=== PATIENT | female | born 1970 | race Caucasian/White ===

== ENCOUNTER 2016-11-02 14:02 | Emergency (ER) | payer OTHER ==
[~2016-11-02] VITALS: Wt 57.5 kg
[2016-11-02 18:02] LABS: URINE BLOOD (Dip) POC Negative (NEGATIVE)
[2016-11-02] MEDS ORDERED: KETOROLAC 30 MG INJ IV STA (18:22)
[2016-11-02] MEDS ORDERED: ASPIRIN 325 MG TAB PO ONE (18:30)
[2016-11-02 18:33] LABS: BASOPHILS % 0.4 % (0.0-2.0); EOSINOPHILS # 0.1 10^3/ul (0.0-0.5); HEMATOCRIT 39.2 % (37.0-47.0); HEMOGLOBIN 13.3 g/dl (12.0-16.0); LYMPHOCYTES # 2.6 10^3/ul (0.8-2.9); LYMPHOCYTES % 32.4 % (15.0-51.0); MEAN CORPUSCULAR HEMOGLOBIN 29.4 pg (29.0-33.0); MEAN CORPUSCULAR HGB CONC 33.9 g/dl (32.0-37.0); MEAN CORPUSCULAR VOLUME 86.7 fl (82.0-101.0); MEAN PLATELET VOLUME 9.3 fl (7.4-10.4); MONOCYTE # 0.7 10^3/ul (0.3-0.9); MONOCYTES % 8.5 % (0.0-11.0); NEUTROPHIL # 4.5 10^3/ul (1.6-7.5); NEUTROPHILS % 57.3 % (39.0-77.0); PLATELET COUNT 367 10^3/UL (140-415); RED BLOOD COUNT 4.52 10^6/ul (4.20-5.40); RED CELL DISTRIBUTION WIDTH 12.6 % (11.5-14.5); WHITE BLOOD COUNT 7.9 10^3/ul (4.8-10.8)
[2016-11-02 18:39] LABS: ANION GAP 19 (8-16); BLOOD UREA NITROGEN 12 mg/dl (7-20); CALCIUM 9.8 mg/dl (8.4-10.2); CARBON DIOXIDE 31 mmol/L (21-31); CHLORIDE 99 mmol/L (97-110); CREATININE 0.57 mg/dl (0.44-1.00); GLUCOSE 110 mg/dl (70-220); POTASSIUM 3.5 mmol/L (3.5-5.1); SODIUM 145 mmol/L (135-144)
[2016-11-02] MEDS ORDERED: SOD CHLORIDE 0.9% 100 ML ONE (18:50)
[2016-11-02] MEDS ORDERED: IOHEXOL 350MG/ML 50 ML BTL ONE (18:50)
[2016-11-02] MEDS ORDERED: IOHEXOL 100 ML ONE (18:50)
[2016-11-02 18:57] LABS: TROPONIN-I < 0.012 ng/ml (0.00-0.12)
--- NOTE | 2016-11-02 19:29 | RADRPT ---
PROCEDURE: CTA Chest with contrast and with 3-D reconstructions CLINICAL INDICATION: SOB left PE ? TECHNIQUE: The study was performed utilizing multidetector CT scanner. Direct spiral axial section s were obtained from the thoracic inlet to the upper abdomen with the use of intravenous contrast ma terial (110 cc of Omnipaque 350). Sagittal, coronal and 3-D reformations were obtained. The images w ere reviewed on a PACS workstation. DLP 297.91 mGycm CTDIvol 28.17, 7.60 mGy One or more of the following dose reduction techniques were used: - Automated exposure control. - Adjustment of the mA and/or kV according to patient size. - Use of iterative reconstruction technique. COMPARISON: No prior studies are available for comparison. FINDINGS: There are no pulmonary emboli. The lungs are clear. There is no pleural fluid. There is no pneumothorax. Heart size is within normal limits. There is no pericardial fluid. The aorta is within normal limi ts. There are no enlarged axillary or mediastinal lymph nodes. The visualized portions of the upper abdomen are unremarkable. Osseous and soft tissue structures are within normal limits. IMPRESSION: No CT evidence for pulmonary embolus. Clear lungs. RPTAT: EE Physician Huber Date Time Electronically viewed and signed by Physician Huber on 11/02/2016 19:29 /
[2016-11-02] MEDS ORDERED: IBUP800T25 PO (20:30)
[2016-11-02] MEDS ORDERED: METH750T93 PO (20:30)
--- NOTE | 2016-11-02 20:37 | ERD ---
ER Documentation Chief Complaint Date/Time DATE: 11/02/16 TIME: 20:32 Chief Complaint Left chest pain HPI This a 45-year-old female who complains of 3 days of pain in the left upper chest left trapezius left posterior upper back. 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 She says the pain is sharp and worse when she moves. She says sometimes it is hard to breathe. She is not having any palpitations syncope dizziness no pain in her jaw shoulders elbows no diaphoresis. She says it is quite painful to move ROS All systems reviewed and are negative except as per history of present illness. Medications Home Meds Active Scripts Methocarbamol* (Robaxin*) 750 Mg Tablet, 750 MG PO TID, #20 TAB Prov:NANI ROWELL DO 11/02/16 Ibuprofen* (Motrin*) 800 Mg Tab, 800 MG PO Q6H Y for PAIN AND OR ELEVATED TEMP, #30 TAB Prov:NANI ROWELL DO 11/02/16 Allergies Allergies: Coded Allergies: No Known Allergy (Unverified , 11/02/16) PMhx/Soc Medical and Surgical Hx: pt denies Medical Hx History of Surgery: Yes (hernia, , tubal ligation) Anesthesia Reaction: No Hx Alcohol Use: No Hx Substance Use: No Hx Tobacco Use: No Smoking Status: Never smoker FmHx Family History: No coronary disease Physical Exam Vitals Vital Signs Date Time Temp Pulse Resp B/P Pulse Ox O2 Delivery O2 Flow Rate FiO2 11/02/16 18:44 Nasal Cannula 2 11/02/16 14:05 98.0 79 18 149/69 99 Physical Exam Const: Well-developed, well-nourished Head: Atraumatic, normocephalic Eyes: Normal Conjunctiva, PERRLA, EOMI, normal sclera, no nystagmus ENT: Normal External Ears, Nose and Mouth, moist mucus membranes. Neck: Full range of motion. No meningismus, no lymphadenopathy. Resp: Clear to auscultation bilaterally, no wheezing, rhonchi, rales, there is tenderness the left upper chest left trapezius and left posterior upper rib cage., The pain is reproducible with palpation and with twisting of the trunk Cardio: Regular rate and rhythm, no murmurs, S1 S2 present Abd: Soft, non tender x 4, non distended. Normal bowel sounds, no guarding or rebound, no pulsitile abdominal masses or bruits Skin: No petechiae or rashes, no ecchymosis , no maculopapular rash Back: No midline or flank tenderness Ext: No cyanosis, or edema, FROM x 4, normal inspection, neurovascularly intact x 4 Neur: Awake and alert, STR 5/5 x 4, sensation intact x 4, no focal findings, cerebellum intact Psych: Normal Mood and Affect Result Diagram: 11/02/16180811/02/161808 Results 24 hrs Laboratory Tests Test 11/02/16 18:06 11/02/16 18:09 Bedside Urine pH (LAB) 6.5 Bedside Urine Protein (LAB) Negative Bedside Urine Glucose (UA) Negative Bedside Urine Ketones (LAB) Negative Bedside Urine Blood Negative Bedside Urine Nitrite (LAB) Negative Bedside Urine Leukocyte Esterase (L Negative White Blood Count 7.910^3/ul Red Blood Count 4.5210^6/ul Hemoglobin 13.3g/dl Hematocrit 39.2% Mean Corpuscular Volume 86.7fl Mean Corpuscular Hemoglobin 29.4pg Mean Corpuscular Hemoglobin Concent 33.9g/dl Red Cell Distribution Width 12.6% Platelet Count 46720^3/UL Mean Platelet Volume 9.3fl Neutrophils % 57.3% Lymphocytes % 32.4% Monocytes % 8.5% Eosinophils % 1.0% Basophils % 0.4% Nucleated Red Blood Cells % 0.0/100WBC Neutrophils # 4.510^3/ul Lymphocytes # 2.610^3/ul Monocytes # 0.710^3/ul Eosinophils # 0.110^3/ul Basophils # 0.010^3/ul Nucleated Red Blood Cells # 0.010^3/ul Sodium Level 145mmol/L Potassium Level 3.5mmol/L Chloride Level 99mmol/L Carbon Dioxide Level 31mmol/L Anion Gap 19 Blood Urea Nitrogen 12mg/dl Creatinine 0.57mg/dl Glucose Level 110mg/dl Calcium Level 9.8mg/dl Troponin I < 0.012ng/ml Current Medications Medications (Trade) Dose Ordered Sig/Margarita Route PRN Reason Start Time Stop Time Status Last Admin Dose Admin Aspirin (Aspirin) 325 mg ONCE ONCE PO 11/02/16 18:30 11/02/16 18:31 DC 11/02/16 18:42 Ketorolac Tromethamine (Toradol) 30 mg ONCE STAT IV 11/02/16 18:22 11/02/16 18:26 DC 11/02/16 18:43 IV Flush 10 ml 10 ml STK-MED ONCE .ROUTE 11/02/16 18:50 11/02/16 18:51 DC 11/02/16 19:04 Sodium Chloride 100 ml @ ud STK-MED ONCE .ROUTE 11/02/16 18:50 11/02/16 18:51 DC 11/02/16 19:04 Iohexol (Omnipaque) 100 ml @ ud STK-MED ONCE .ROUTE 11/02/16 18:50 11/02/16 18:51 DC 11/02/16 19:05 Iohexol (Omnipaque 350mg/ ml) 50 ml STK-MED ONCE .ROUTE 11/02/16 18:50 11/02/16 18:51 DC 11/02/16 19:05 Procedures/MDM EKG: Rate/Rhythm: Normal Sinus Rhythm,NL intervals QRS, ST, QT: NORMAL WI, QRS, QT] Impression: NORMAL EKG PROCEDURE: CTA Chest with contrast and with 3-D reconstructions CLINICAL INDICATION: SOB left PE ? TECHNIQUE: The study was performed utilizing multidetector CT scanner. Direct spiral axial sections were obtained from the thoracic inlet to the upper abdomen with the use of intravenous contrast material (110 cc of Omnipaque 350) . Sagittal, coronal and 3-D reformations were obtained. The images were reviewed on a PACS workstation. DLP 297.91 mGycm CTDIvol 28.17, 7.60 mGy One or more of the following dose reduction techniques were used: - Automated exposure control. - Adjustment of the mA and/or kV according to patient size. - Use of iterative reconstruction technique. COMPARISON: No prior studies are available for comparison. FINDINGS: There are no pulmonary emboli. The lungs are clear. There is no pleural fluid. There is no pneumothorax. Heart size is within normal limits. There is no pericardial fluid. The aorta is within normal limits. There are no enlarged axillary or mediastinal lymph nodes. The visualized portions of the upper abdomen are unremarkable. Osseous and soft tissue structures are within normal limits. IMPRESSION: No CT evidence for pulmonary embolus. Clear lungs. RPTAT: EE Lb De Oliveira, Physician Date Time Electronically viewed and signed by Lb De Oliveira, Physician on 11/02/2016 19:29 RA/ CC: NANI ROWELL DO No evidence of PE. The patient likely has musculoskeletal pain. She has negative troponin. Will discharge home. She is feeling much better after medication here Departure Diagnosis: Primary Impression: Strain of chest wall Encounter type: initial encounter Qualified Code: S29.011A - Strain of chest wall, initial encounter Condition: Stable Patient Instructions: Chest Wall Strain NANI ROWELL DO Nov 02, 2016 20:37
[2016-11-02 20:38] VITALS: BP 131/79; PULSE 71; RESP 20
== END 2016-11-02 20:41 | disposition home or self-care (01) ==
LOC: E/R 14:02
DX: S29.011A Strain of muscle and tendon of front wall of thorax, initial encounter (principal); X58.XXXA Exposure to other specified factors, initial encounter; Y92.9 Unspecified place or not applicable
CPT/HCPCS: 36415; 71275; 80048; 81003; 84484; 85025; 93005; 96374; J1885; Q9967; Z7502; Z7610

== ENCOUNTER 2018-05-17 16:02 | Emergency (ER) | payer OTHER ==
[~2018-05-17] VITALS: Ht 160 cm; Wt 59.7 kg
[~2018-05-17 16:02] MED LIST: IBUP800T48 PO; METH750T93 PO
[2018-05-17 16:12] VITALS: BP 124/66; PULSE 88; RESP 18; Ht 160 cm; Wt 59.7 kg
[2018-05-17] MEDS ORDERED: FLUT9.9S NASAL (16:29)
[2018-05-17] MEDS ORDERED: POLY10DR19 BOTH EYES (16:29)
[2018-05-17] MEDS ORDERED: AZIT250T PO (16:29)
[2018-05-17] MEDS ORDERED: BENZ200C68 PO (16:29)
[2018-05-17] MEDS ORDERED: IBUP-1542 PO (16:29)
--- NOTE | 2018-05-17 16:35 | ERD ---
ER Documentation Chief Complaint Chief Complaint cough, WILDE, sore throat, chest wall pain, body aches X 1 wk HPI This patient is a 47-year-old female with no significant past medical history presenting to the emergency department with complaints of cough intermittently for the past 1 week. Symptoms are worse at night. She also experiences some chest discomfort while coughing. She took [id number] medication with some relief. Cough is noted to be productive. Symptoms are moderate in severity. Patient denies any fevers or chills or other symptoms at this time. ROS All systems reviewed and are negative except as per history of present illness. Medications Home Meds Active Scripts Fluticasone Propionate (Flonase Allergy Relief) 9.9 Ml [place].susp, 1 SPRAY NASAL BID, #1 BOTTLE TO EACH NOSTRIL Prov:MICHELLE DEVRIES PA-C 05/17/18 Ibuprofen* (Motrin*) 600 Mg Tab, 600 MG PO Q6, #30 TAB Prov:MICHELLE DEVRIES PA-C 05/17/18 Polymyxin B Sulfate-TMP* (Polymyxin B-TMP Eye Drops*) 10 Ml Drops, 1 DROP BOTH EYES QID for 7 Days, EA Prov:MICHELLE DEVRIES PA-C 05/17/18 Benzonatate* (Benzonatate*) 200 Mg Capsule, 200 MG PO TID PRN for COUGH, #15 CAP Prov:MICHELLE DEVRIES PA-C 05/17/18 Azithromycin* (Zithromax*) 250 Mg Tablet, 250 MG PO .ZPACK DIRECTED, #6 TAB TAKE 500 MG (2 TABS) THE FIRST DAY THEN 250 MG (1 TAB) DAYS 2-5 Prov:MICHELLE DEVRIES PA-C 05/17/18 Methocarbamol* (Robaxin*) 750 Mg Tablet, 750 MG PO TID, #20 TAB Prov:LEKKOS,APOSTOLOS A. DO 11/02/16 Ibuprofen* (Motrin*) 800 Mg Tab, 800 MG PO Q6H PRN for PAIN AND OR ELEVATED TEMP, #30 TAB Prov:LEKKOS,APOSTOLOS A. DO 11/02/16 Allergies Allergies: Coded Allergies: No Known Allergy (Unverified , 11/02/16) PMhx/Soc History of Surgery: Yes (hernia, , tubal ligation) Anesthesia Reaction: No Hx Alcohol Use: No Hx Substance Use: No Hx Tobacco Use: No FmHx Family History: No diabetes Physical Exam Vitals Vital Signs Date Temp Pulse Resp B/P (MAP) Pulse Ox O2 O2 Flow FiO2 Time Delivery Rate 05/17/18 97.8 88 18 124/66 97 16:12 (85) Physical Exam Const: No acute distress Head: Atraumatic Eyes: Normal Conjunctiva ENT: Normal External Ears, Nose and Mouth. Neck: Full range of motion. No meningismus. Resp: Clear to auscultation bilaterally Cardio: Regular rate and rhythm, no murmurs Skin: No petechiae or rashes Ext: No cyanosis, or edema Neur: Awake and alert Psych: Normal Mood and Affect Procedures/MDM 47-year-old female presenting to the emergency department with signs and symptoms most consistent with acute bronchitis, with possible bacterial etiology. Patient is nontoxic and well-appearing. No evidence to suggest sepsis, meningitis, pneumonia, or other emergencies. Patient stable and appropriate for discharge and further treatment as an outpatient. The patient agreed with the diagnosis, plan, need for follow-up, return precautions. All questions and concerns were addressed prior to discharge. Departure Diagnosis: Primary Impression: Acute bronchitis Bronchitis organism: unspecified organism Qualified Codes: J20.9 - Acute bronchitis, unspecified Condition: Fair Patient Instructions: Bronchitis, Antiobiotic Treatment (Adult) Referrals: [facility] YOU HAVE RECEIVED A MEDICAL SCREENING EXAM AND THE RESULTS INDICATE THAT YOU DO NOT HAVE A CONDITION THAT REQUIRES URGENT TREATMENT IN THE EMERGENCY DEPARTMENT. FURTHER EVALUATION AND TREATMENT OF YOUR CONDITION CAN WAIT UNTIL YOU ARE SEEN IN YOUR DOCTORS OFFICE WITHIN THE NEXT 1-2 DAYS. IT IS YOUR RESPONSIBILITY TO MAKE AN APPOINTMENT FOR FOLOW-UP CARE. IF YOU HAVE A PRIMARY DOCTOR --you should call your primary doctor and schedule an appointment IF YOU DO NOT HAVE A PRIMARY DOCTOR YOU CAN CALL OUR PHYSICIAN REFERRAL HOTLINE AT IF YOU CAN NOT AFFORD TO SEE A PHYSICIAN YOU CAN CHOSE FROM THE FOLLOWING [facility] [address] [place] [facility] [address] [facility]. [facility] [address] [facility]. [facility] [address] [facility]. [facility] [address] [facility]. [facility]. [address] Additional Instructions: Call your primary care doctor TOMORROW for an appointment during the next 1-2 days.See the doctor sooner or return here if your condition worsens before your appointment time. MICHELLE DEVRIES PA-C May 17, 2018 16:35
== END 2018-05-17 16:42 | disposition home or self-care (01) ==
LOC: FTE 16:02
DX: J20.9 Acute bronchitis, unspecified (principal)
CPT/HCPCS: 99283